=== PATIENT | male | born 1940 | race Caucasian/White ===

== ENCOUNTER → 2019-05-31 | Outpatient (CLI) | payer OTHER ==
--- NOTE | 2019-06-03 12:53 | PF ---
[address] [address] PULMONARY FUNCTION REPORT Name: JOSÉ MANUEL ROBLERO Room: [facility].#: [id number] Admission: 05/31/19 Attend Phys: Jacob Mendes Discharge: Date of : 40 Report #: [id number] THIS REPORT FOR: //name// CC: Virginia Mason MD DATE OF SERVICE: 05/31/2019 PRIMARY CARE PHYSICIAN: Tino Mason MD The patient has severe dyspnea on exertion. No prior history of COPD. Full pulmonary function tests are indicated. Spirometry demonstrates severe obstructive defect. No improvement is noted after single dose of inhaled bronchodilator. Best study shows an FEV1 of 0.85 and FVC of 3.22, ratio is 27%. FEV1 is 26% of predicted consistent with Gold level 4, decreased mid flow rates are noted. Lung volumes performed via plethysmography show increased TLC to 117% of predicted. Vital capacity is lower limits of normal 70% of predicted. Residual volume is increased to 200% of predicted. Diffusion when corrected for alveolar volume is lower limits of normal at 78. IMPRESSION: Abnormalities suggest severe obstructive airways disease with hyperinflation and increased lung volumes, normal diffusion is noted. No improvement after inhaled bronchodilator. <ELECTRONICALLY SIGNED> By: Harley Connors MD 06/03/19 1253 [id number] bruce Gonzalez
== END ==
LOC: M.PUL 12:40
DX: J44.9 Chronic obstructive pulmonary disease, unspecified (principal)